=== PATIENT | female | born 1945 | race Caucasian/White ===

== ENCOUNTER 2018-08-06 07:00 | Day surgery (SDC) | payer OTHER ==
[~2018-08-06] VITALS: Ht 160 cm; Wt 72.1 kg
[~2018-08-06 07:00] MED LIST: CARAFATE SU1 G/10 ML PO; DOLOGESIC CAPLE1 TAB PO; HYDROCHLOROTH12.5 M1 PO; LEVSIN/SL0.125 MG PO; MEDROL4 MG PO; MEGESTROL400 MG/10 PO; NORVASC10 MG PO; PROTONIX40 MG PO; SEPTRA 80/400 T1 TAB PO; VASOTEC2.5 MG PO; XOPENEX1.25 MG/0. IH
== END 2018-08-07 08:00 | disposition home or self-care (01) ==
LOC: EDSTATUS 07:00 → SURH 07:00 → CIR.AMB 07:00 → EDSTATUS 09:29 → SURH 09:31 → O/R 12:44 → SURH 14:46 → CIR.AMB 08-07 08:00 → O/R 08-07 12:28 → SURH 08-07 12:28
DX: C50.112 Malignant neoplasm of central portion of left female breast (principal); J44.9 Chronic obstructive pulmonary disease, unspecified; C79.81 Secondary malignant neoplasm of breast; C78.02 Secondary malignant neoplasm of left lung; C78.01 Secondary malignant neoplasm of right lung

== ENCOUNTER 2018-08-19 10:12 | Inpatient (IN) | payer OTHER ==
[~2018-08-19] VITALS: Wt 5.0 kg
[2018-09-09] MEDS ORDERED: AMLODIPINE BESY10 MG PO (08:58)
[2018-09-09] MEDS ORDERED: SERTRALINE HCL50 MG PO (09:01)
[2018-09-09] MEDS ORDERED: FAMOTIDINE20 MG PO (09:06)
[2018-09-09] MEDS ORDERED: Zofran 2MG/ML (2ML) IV (09:06)
[2018-09-09] MEDS ORDERED: ZOFRAN ODT8 MG PO (09:08)
[2018-09-09] MEDS ORDERED: TOFRANIL25 MG PO (09:10)
== END 2018-09-09 11:31 | disposition home health service (06) | DRG 392 ==
LOC: ER 10:12 → SEC-K 20:36 → MEDI 20:36
PROC: 3E0336Z Introduction of Nutritional Substance into Peripheral Vein, Percutaneous Approach (ICD-10-PCS; 2018-08-19)
PROC: BW25YZZ Computerized Tomography (CT Scan) of Chest, Abdomen and Pelvis using Other Contrast (ICD-10-PCS; 2018-08-20)
PROC: 02HV33Z Insertion of Infusion Device into Superior Vena Cava, Percutaneous Approach (ICD-10-PCS; 2018-08-21)
PROC: 0DB78ZX Excision of Stomach, Pylorus, Via Natural or Artificial Opening Endoscopic, Diagnostic (ICD-10-PCS; principal; 2018-08-26)
PROC: BW28ZZZ Computerized Tomography (CT Scan) of Head (ICD-10-PCS; 2018-08-27)
PROC: B030YZZ Magnetic Resonance Imaging (MRI) of Brain using Other Contrast (ICD-10-PCS; 2018-08-27)
DX: K29.00 Acute gastritis without bleeding (principal); C78.02 Secondary malignant neoplasm of left lung; C78.01 Secondary malignant neoplasm of right lung; C79.51 Secondary malignant neoplasm of bone; E87.1 Hypo-osmolality and hyponatremia; E86.0 Dehydration; J44.9 Chronic obstructive pulmonary disease, unspecified; I10 Essential (primary) hypertension; E03.8 Other specified hypothyroidism; T73.0XXA Starvation, initial encounter; R63.0 Anorexia; C50.112 Malignant neoplasm of central portion of left female breast; Z17.0 Estrogen receptor positive status [ER+]; E83.39 Other disorders of phosphorus metabolism; F32.89 Other specified depressive episodes
CPT/HCPCS: 70552

== ENCOUNTER 2018-09-16 16:24 | Inpatient (IN) | payer OTHER ==
[~2018-09-16] VITALS: Ht 160 cm; Wt 72.1 kg
[~2018-09-16 16:24] MED LIST changes: +AMLODIPINE BESY10 MG PO; +FAMOTIDINE20 MG PO; +SERTRALINE HCL50 MG PO; +TOFRANIL25 MG PO; +ZOFRAN ODT8 MG PO; +Zofran 2MG/ML (2ML) IV
[2018-09-22] MEDS ORDERED: LOSARTAN POTASS25 MG PO (08:59)
[2018-09-22] MEDS ORDERED: ZANTAC150 MG PO (08:59)
[2018-09-22] MEDS ORDERED: ZOFRAN8 MG PO (08:59)
[2018-09-22] MEDS ORDERED: PROTONIX40 MG PO (08:59)
[2018-09-22] MEDS ORDERED: LEVAQUIN500 MG PO (08:59)
[2018-09-22] MEDS ORDERED: CARAFATE1 GM PO (08:59)
[2018-09-22] MEDS ORDERED: METOCLOPRAMIDE10 MG PO (08:59)
== END 2018-09-22 20:02 | DRG 641 ==
LOC: ER 16:24 → SEC-K 09-17 08:48 → MEDJ 09-17 08:48
DX: E87.1 Hypo-osmolality and hyponatremia (principal); N39.0 Urinary tract infection, site not specified; C79.51 Secondary malignant neoplasm of bone; E86.0 Dehydration; K29.40 Chronic atrophic gastritis without bleeding; I10 Essential (primary) hypertension; E03.8 Other specified hypothyroidism; Z86.73 Personal history of transient ischemic attack (TIA), and cerebral infarction without residual deficits; B96.1 Klebsiella pneumoniae [K. pneumoniae] as the cause of diseases classified elsewhere; J44.9 Chronic obstructive pulmonary disease, unspecified; J45.998 Other asthma; E11.9 Type 2 diabetes mellitus without complications; K21.9 Gastro-esophageal reflux disease without esophagitis; C50.112 Malignant neoplasm of central portion of left female breast; Z17.0 Estrogen receptor positive status [ER+]; F32.89 Other specified depressive episodes; Z90.12 Acquired absence of left breast and nipple

== ENCOUNTER 2018-10-12 13:44 | Emergency (ER) | payer OTHER ==
[~2018-10-12] VITALS: Ht 165.1 cm; Wt 68.0 kg
[~2018-10-12 13:44] MED LIST changes: +CARAFATE1 GM PO; +LEVAQUIN500 MG PO; +LOSARTAN POTASS25 MG PO; +METOCLOPRAMIDE10 MG PO; +ZANTAC150 MG PO; +ZOFRAN8 MG PO
[2018-10-13] MEDS ORDERED: PEPCID40 MG PO ×2 (07:46→07:47)
[2018-10-13] MEDS ORDERED: PHENERGAN25 MG PO (07:46)
== END 2018-10-13 13:08 | disposition home or self-care (01) ==
LOC: ER 13:44
DX: K29.70 Gastritis, unspecified, without bleeding (principal)